=== PATIENT | female | born 1995 | race Caucasian/White ===

== ENCOUNTER 2023-01-22 20:20 | Emergency (ER) | payer OTHER ==
[~2023-01-22] VITALS: Ht 167.6 cm; Wt 56.7 kg
[2023-01-22 20:42] VITALS: BP 130/83
== END 2023-01-23 01:46 | disposition home or self-care (01) ==
LOC: ER 20:20
DX: H53.8 Other visual disturbances (principal)
CPT/HCPCS: 99283

== ENCOUNTER 2024-06-03 11:10 | Inpatient (IN) | payer OTHER ==
[~2024-06-03] VITALS: Ht 167.6 cm; Wt 63.6 kg
[2024-06-03] VITALS (33 sets, daily range): BP systolic 105–147; BP diastolic 61–92
[2024-06-03] MEDS ORDERED: Lactated Ringer's 1,000 ML IV ONE (13:41)
[2024-06-03] MEDS ORDERED: Acetaminophen 500 MG Tab PO PRN (13:50)
[2024-06-03] MEDS ORDERED: Lactated Ringer's 1,000 ML IV SCH ×3 (13:50→20:55)
[2024-06-03] MEDS ORDERED: Tranexamic Acid 1,000 MG in NS 100 ML IV SCH (13:50)
[2024-06-03] MEDS ORDERED: Oxytocin 10 Unit / ML Vial IM PRN (13:50)
[2024-06-03] MEDS ORDERED: Lactated Ringer's 1,000 ML IV PRN (13:50)
[2024-06-03] MEDS ORDERED: FentaNYL 2mcg/ml-Bup 0.1% Epd 250 ML EPI PRN (13:50)
[2024-06-03] MEDS ORDERED: Misoprostol 200 MCG Tab PR PRN ×2 (13:50→20:55)
[2024-06-03] MEDS ORDERED: Misoprostol 200 MCG Tab BC PRN (13:50)
[2024-06-03] MEDS ORDERED: Carboprost Tromethamine 250 MCG/ML 1ML Amp IM PRN (13:50)
[2024-06-03] MEDS ORDERED: ePHEDrine Sulfate 50 MG/ML 1ML Injection XX PRN (13:50)
[2024-06-03] MEDS ORDERED: Methylergonovine Maleate 0.2MG / ML 1ML Amp IM PRN ×2 (13:50→20:55)
[2024-06-03] MEDS ORDERED: Calcium Carbonate 500 MG Tab Chew PO PRN (13:50)
[2024-06-03] MEDS ORDERED: Ondansetron HCl 2 MG / ML 2ML Vial IV PRN (13:50)
[2024-06-03] MEDS ORDERED: OXYTOCIN/RINGER'S LACTATE 500 ML IV PRN (13:50)
[2024-06-03] MEDS ORDERED: PRENATAL TABLE1 EAC9 (14:02)
[2024-06-03 14:18] LABS: BASOPHILS ABSOLUTE AUTO 0.05 K/mm3 (0.00-0.23); BASOPHILS PERCENT AUTO 0 % (0-2); EOSINOPHILS ABSOLUTE AUTO 0.01 K/mm3 (0.00-0.68); EOSINOPHILS PERCENT AUTO 0 % (0-6); Hematocrit 35.4 % (33.0-51.0); Hemoglobin 12.2 g/dL (11.5-16.0); IMMATURE GRAN ABSOLUTE AUTO 0.13 K/mm3 (0.00-0.10); IMMATURE GRAN PERCENT AUTO 1 % (0-1); LYMPHOCYTES ABSOLUTE AUTO 1.25 K/mm3 (0.84-5.20); LYMPHOCYTES PERCENT AUTO 9 % (21-46); MONOCYTES PERCENT AUTO 5 % (4-13); Mean Corpuscular HGB 32.8 pg (26.0-34.0); Mean Corpuscular HGB Conc 34.5 g/dL (31.5-36.5); Mean Corpuscular Volume 95 fL (80-100); Mean Platelet Volume 11.9 fL (9.1-12.4); NEUTROPHILS ABSOLUTE AUTO 12.55 K/mm3 (1.96-9.15); NEUTROPHILS PERCENT AUTO 85 % (41-73); Platelet Count 155 K/mm3 (150-400); RDW Coefficient Variation 13.2 % (11.7-14.2); RDW Standard Deviation 45.9 fL (35.1-46.3); Red Blood Cell Count 3.72 M/mm3 (3.80-5.20); White Blood Cell Count 14.79 K/mm3 (4.00-11.30)
[2024-06-03] MEDS ORDERED: Acetaminophen 325 MG TABLET PO PRN (20:55)
[2024-06-03] MEDS ORDERED: Benzocaine Topical Anesthetic Spray 60GM TOP PRN (21:00)
[2024-06-03] MEDS ORDERED: Ibuprofen 400 MG Tab PO PRN (21:00)
[2024-06-03] MEDS ORDERED: OXYTOCIN/RINGER'S LACTATE 500 ML IV SCH (21:00)
[2024-06-03] MEDS ORDERED: Rho(D) Immune Globulin 300 MCG / SYR IM ONE (21:00)
[2024-06-03] MEDS ORDERED: Witch Hazel/Glycerin PADS TOP PRN (21:00)
[2024-06-04] MEDS ORDERED: Ketorolac Tromethamine 30mg Vial IV SCH
[2024-06-04 00:35] VITALS: BP 104/62
[2024-06-04 03:31] VITALS: BP 130/84
[2024-06-04 08:55] VITALS: BP 133/89
[2024-06-04] MEDS ORDERED: Prenatal Vit/FE Fumarate/FA 1 Tab PO SCH (09:00)
[2024-06-04 10:22] LABS: BASOPHILS ABSOLUTE AUTO 0.06 K/mm3 (0.00-0.23); BASOPHILS PERCENT AUTO 0 % (0-2); EOSINOPHILS ABSOLUTE AUTO 0.05 K/mm3 (0.00-0.68); EOSINOPHILS PERCENT AUTO 0 % (0-6); Hemoglobin 10.4 g/dL (11.5-16.0); IMMATURE GRAN ABSOLUTE AUTO 0.14 K/mm3 (0.00-0.10); IMMATURE GRAN PERCENT AUTO 1 % (0-1); LYMPHOCYTES ABSOLUTE AUTO 1.34 K/mm3 (0.84-5.20); LYMPHOCYTES PERCENT AUTO 7 % (21-46); MONOCYTES ABSOLUTE AUTO 0.78 K/mm3 (0.16-1.47); MONOCYTES PERCENT AUTO 4 % (4-13); Mean Corpuscular HGB 33.3 pg (26.0-34.0); Mean Corpuscular HGB Conc 34.7 g/dL (31.5-36.5); Mean Corpuscular Volume 96 fL (80-100); Mean Platelet Volume 11.8 fL (9.1-12.4); NEUTROPHILS ABSOLUTE AUTO 16.47 K/mm3 (1.96-9.15); NEUTROPHILS PERCENT AUTO 88 % (41-73); Platelet Count 132 K/mm3 (150-400); RDW Coefficient Variation 13.2 % (11.7-14.2); RDW Standard Deviation 46.4 fL (35.1-46.3); Red Blood Cell Count 3.12 M/mm3 (3.80-5.20); White Blood Cell Count 18.84 K/mm3 (4.00-11.30)
[2024-06-04 11:48] VITALS: BP 132/85
[2024-06-04 16:43] VITALS: BP 131/73
[2024-06-04 21:06] VITALS: BP 138/86
--- NOTE | 2024-06-04 22:28 | NUR ---
DC NOTE DC INSTRUCTIONS GIVEN, PT HAS NO OTHER QUESTIONS OR CONCERNS AT THIS TIME. PAIN UNDER CONTROL. VSS. CARING FOR SELF AND NB NIDEPENDENTLY. WILL RETURN FRIDAY FOR PPFU AND CALL [facility] OFFICE TO SCHEDULE APPOINTMENTS.
== END 2024-06-04 22:36 | disposition home or self-care (01) | DRG 807 ==
LOC: BC 11:10 → OBS 11:10 → BC 13:08 → OBS 13:12 → BC 13:16
PROVIDERS: ADMIT Obstetrics & Gynecology
PROC: 10E0XZZ Delivery of Products of Conception, External Approach (ICD-10-PCS; principal; 2024-06-03)
PROC: 0KQM0ZZ Repair Perineum Muscle, Open Approach (ICD-10-PCS; 2024-06-03)
PROC: 3E0R3BZ Introduction of Anesthetic Agent into Spinal Canal, Percutaneous Approach (ICD-10-PCS; 2024-06-03)
PROC: 00HU33Z Insertion of Infusion Device into Spinal Canal, Percutaneous Approach (ICD-10-PCS; 2024-06-03)
DX: O48.0 Post-term pregnancy (principal); Z37.0 Single live birth; O69.81X0 Labor and delivery complicated by cord around neck, without compression, not applicable or unspecified; Z3A.40 40 weeks gestation of pregnancy; O70.1 Second degree perineal laceration during delivery; Z98.890 Other specified postprocedural states
CPT/HCPCS: 36415; 51702; 59025; 85025; 85460; 86850; 86870; 86900; 86901; A9270; J1885; J2590; J2791; J7120